=== PATIENT | female | born 1985 | race Two or more races ===

== ENCOUNTER 2023-05-03 08:05 | Emergency (ER) | payer MEDICAID ==
[~2023-05-03] VITALS: Ht 162.6 cm; Wt 165.0 kg
[2023-05-03 08:33] VITALS: BP 135/92; PULSE 79; RESP 20; O2SAT 99
[2023-05-03] MEDS ORDERED: ACETAMINOPHEN 500 MG TAB PO ONE (08:45)
[2023-05-03] MEDS ORDERED: IBUP-1456 PO (09:38)
[2023-05-03 09:41] VITALS: TEMP 97.7
== END 2023-05-03 09:47 | disposition home or self-care (01) ==
LOC: ER 08:05
DX: S52.122A Displaced fracture of head of left radius, initial encounter for closed fracture (principal); Z79.1 Long term (current) use of non-steroidal anti-inflammatories (NSAID); W01.0XXA Fall on same level from slipping, tripping and stumbling without subsequent striking against object, initial encounter; Y93.89 Activity, other specified; Y92.89 Other specified places as the place of occurrence of the external cause; Y99.8 Other external cause status
CPT/HCPCS: 29105; 73080; 73110

== ENCOUNTER 2024-06-30 03:26 | Inpatient (IN) | payer MEDICAID ==
[~2024-06-30] VITALS: Ht 162.6 cm; Wt 88.0 kg
[~2024-06-30 03:26] MED LIST: IBUP-1456 PO
[2024-06-30 04:10] VITALS: PULSE 71; RESP 17; O2SAT 100
[2024-06-30] MEDS: SODIUM CHLORIDE 0.9% 1,000 ML IV ONE ×4 (04:12→09:49)
[2024-06-30] MEDS: ACETAMINOPHEN IV 1000 MG/100ML (10MG/ML) IV ONE (04:50)
[2024-06-30 05:13] LABS: Basophils # (auto) 0 10 ^3/uL (0-0.2); Basophils % (auto) 0.3 % (0.0-2.0); Eosinophils # (auto) 0 10 ^3/uL (0-0.8); Eosinophils % (auto) 0.1 % (0.0-7.0); Hematocrit 40.6 % (36.0-46.0); Hemoglobin 13.1 g/dL (12.2-16.2); Lymphocytes # (auto) 1.2 10 ^3/uL (0.4-5.4); Lymphocytes % (auto) 8.9 % (10.0-50.0); Mean Corpuscular Hgb Conc. 32.3 g/dL (32.0-36.0); Mean Corpuscular Volume 102.1 fL (80.0-100.0); Monocytes # (auto) 0.7 10 ^3/uL (0-1.3); Monocytes % (auto) 5.4 % (0.0-12.0); Neutrophils # (auto) 11.7 10 ^3/uL (1.6-8.6); Neutrophils % (auto) 85.3 % (37.0-80.0); Platelet Count (auto) 211 10^3/uL (140-450); Red Blood Cells 3.97 10^6/uL (4.0-5.20); Red Cell Distribution Width 13.1 % (11.8-14.3); White Blood Cell 13.7 10^3/uL (4.4-10.8)
[2024-06-30 05:21] LABS: Alanine Aminotransferase 56 U/L (7-40); Alkaline Phosphatase 45 U/L (46-116); Anion Gap 12 (5-15); Aspartate Aminotransferase 138 U/L (13-40); BUN/Creatinine Ratio 16.9 (10.0-20.0); Bilirubin, Total 0.6 mg/dL (0.2-1.0); Blood Urea Nitrogen 12 mg/dL (9-23); Calcium 9.1 mg/dL (8.7-10.4); Carbon Dioxide 20 mmol/L (20-31); Chloride 111 mmol/L (98-107); Glucose 131 mg/dL (74-106); Lipase 29 U/L (12-53); Potassium 3.7 mmol/L (3.5-5.1); Sodium 143 mmol/L (136-145); Total Protein 6.3 g/dL (5.7-8.2)
--- NOTE | 2024-06-30 05:21 | DVH ---
EXAM: CT Abdomen and Pelvis Without Intravenous Contrast CLINICAL INDICATION: Abdominal pain, hypotension TECHNIQUE: Axial computed tomography images of the abdomen and pelvis without intravenous contrast. This CT exam was performed using one or more of the following dose reduction techniques: automated exposure control, adjustment of the mA and/or kV according to patient size, and/or use of iterative r econstruction technique. CONTRAST: COMPARISON: None FINDINGS: LUNG BASES: Unremarkable. No mass. No consolidation. MEDIASTINUM: Small esophageal hiatal hernia. ABDOMEN: LIVER: Fatty infiltration of the liver. GALLBLADDER AND BILE DUCTS: Unremarkable. No calcified stones. No ductal dilation. PANCREAS: Unremarkable. No ductal dilation. SPLEEN: Unremarkable. No splenomegaly. ADRENALS: Unremarkable. No mass. KIDNEYS AND URETERS: Unremarkable. No stones within either kidney. No hydronephrosis. STOMACH AND BOWEL: Unremarkable. No obstruction. No mucosal thickening. PELVIS: APPENDIX: Normal appendix. BLADDER: Unremarkable. No stones. REPRODUCTIVE: Unremarkable as visualized. ABDOMEN and PELVIS: INTRAPERITONEAL SPACE: Unremarkable. No free air. No significant fluid collection. BONES/JOINTS: No acute fracture. No dislocation. SOFT TISSUES: Umbilical hernia containing fat. VASCULATURE: Unremarkable. No abdominal aortic aneurysm. LYMPH NODES: Unremarkable. No enlarged lymph nodes. OTHER FINDINGS: . . IMPRESSION: 1. Normal appendix. 2. Small esophageal hiatal hernia. 3. Umbilical hernia containing fat. 4. No obstructive uropathy.
--- NOTE | 2024-06-30 05:51 | ED.PDOC ---
History of Present Illness HPI Comments [id number] presents with complaint of epigastric and RUQ abdominal, back, and neck pain, dizziness, and generalized weakness, today. Patient endorses on sudden and unprovoked onset of symptoms that awoke her from her sleep, this morning. She states on pain being 8/10 in severity. She reports no significant history but admits to poor fluid intake the day prior. She has no endorsed nausea, vomiting, diarrhea, constipation, or other associated symptoms or modifying factors at this time. Upon arrival to ED, patient was found with a blood pressure of 82/58, with no endorses history of hypotension in the past. Chief Complaint: Abdominal Pain Time Seen by MD: 04:10 Reviewed Notes: Nurses Notes, Medications, Allergies Allergies: Coded Allergies: NO KNOWN ALLERGIES (Unverified , 06/30/24) Home Meds Active Scripts Ibuprofen (Ibuprofen) 800 Mg Tab, 1 TAB PO TID, #30 TAB Prov:KADICHRISTIANE 05/03/23 Information Source: Patient Mode of Arrival: Ambulatory Severity: Moderate Review of Systems: REVIEW OF SYSTEMS: No fever, no chills, or fatigue HEENT: No sore throat, no earache, no congestion, no neck pain. Cardiac: No chest pain. No palpitations. Lungs: No shortness of breath, no cough. GI: Abdominal pain. No nausea, no vomiting, no diarrhea, no constipation, : No dysuria, frequency, or urgency. No hematuria. Musculoskeletal: Back pain. Neck pain. no joint swelling, no extremity edema. Skin: No rash, no itching. Neuro: Dizziness. Generalized weakness. No headache, no dizziness. Vital Signs Vital Signs Date Time Temp Pulse Resp B/P (MAP) Pulse Ox O2 Delivery O2 Flow Rate FiO2 06/30/24 05:11 63 18 100/63 (75) 99 06/30/24 04:13 98.9 06/30/24 04:10 Room Air* 0 21 Physical Exam General: Awake, alert and oriented. No acute distress. Skin: Skin in cool to touch, dry and intact. Appropriate color for ethnicity. HEENT: The head is normocephalic and atraumatic. Conjunctivae are clear without exudates or hemorrhage. Sclera is non-icteric. EOM are intact. No signs of nystagmus. Eyelids are normal in appearance without swelling or lesions. Oral mucosa is pink and moist Neck: The neck is supple with normal range of motion. No JVD. Cardiac: Heart rate and rhythm are normal. No murmurs, gallops, or rubs are auscultated. Respiratory: No signs of respiratory distress. Lung sounds are clear in all lobes bilaterally without rales, ronchi, or wheezes. Abdominal: Right upper quadrant epigastric tenderness. Otherwise, abdomen is soft, and without distention. Bowel sounds are present and normoactive in all four quadrants. Extremities: Upper and lower extremities are atraumatic in appearance without deformity or edema. Neurological: The patient is awake, alert and oriented to person, place, and time with normal speech. Speech is clear. There is no facial asymmetry. 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 Was a procedure done?: No Differential Dx Considerations may include: Differential diagnoses considered include: Abdominal aortic aneurysm, NV, esophageal rupture, intestinal obstruction, mesenteric ischemia, perforated viscus or solid organ rupture, CHF with hepatomegaly, pneumonia, abscess, appendicitis, biliary disease, diverticulitis, gastritis, gastroenteritis, hepatitis, hernia, inflammatory bowel disease, pancreatitis, peptic ulcer disease, urinary tract infection, ureteral colic, constipation, GERD, irritable syndrome, abdominal wall pain, nonspecific abdominal pain, herpes zoster. [ ]Also ruptured ectopic , ovarian torsion/cyst, tubo-ovarian abscess, PID, endometriosis, mittelschmerz. X-Ray, Labs, Meds, VS Vital Signs Date Time Temp Pulse Resp B/P (MAP) Pulse Ox O2 Delivery O2 Flow Rate FiO2 06/30/24 05:11 63 18 100/63 (75) 99 06/30/24 04:38 70 6 96/54 (68) 98 06/30/24 04:20 71 18 99/64 (76) 99 06/30/24 04:13 98.9 60 20 60/31 (41) 98 06/30/24 04:10 60 17 83/54 (64) 100 06/30/24 04:10 71 17 100 Room Air* 0 21 06/30/24 04:08 97.7 71 18 82/58 (66) 100 97.7 Lab Test 06/30/24 04:54 Range/Units White Blood Count 13.7 H 4.4-10.8 10^3/uL Red Blood Count 3.97 L 4.0-5.20 10^6/uL Hemoglobin 13.1 12.2-16.2 g/dL Hematocrit 40.6 36.0-46.0 % Mean Corpuscular Volume 102.1 H 80.0-100.0 fL Mean Corpuscular Hemoglobin 33.0 H 28.0-32.0 pg Mean Corpuscular Hemoglobin Concent 32.3 32.0-36.0 g/dL Red Cell Distribution Width 13.1 11.8-14.3 % Platelet Count 211 140-450 10^3/uL Mean Platelet Volume 8.3 6.9-10.8 fL Neutrophils (%) (Auto) 85.3 H 37.0-80.0 % Lymphocytes (%) (Auto) 8.9 L 10.0-50.0 % Monocytes (%) (Auto) 5.4 0.0-12.0 % Eosinophils (%) (Auto) 0.1 0.0-7.0 % Basophils (%) (Auto) 0.3 0.0-2.0 % Neutrophils # (Auto) 11.7 H 1.6-8.6 10 ^3/uL Lymphocytes # (Auto) 1.2 0.4-5.4 10 ^3/uL Monocytes # (Auto) 0.7 0-1.3 10 ^3/uL Eosinophils # (Auto) 0 0-0.8 10 ^3/uL Basophils # (Auto) 0 0-0.2 10 ^3/uL Nucleated Red Blood Cells 0.0 % Sodium Level 143 136-145 mmol/L Potassium Level 3.7 3.5-5.1 mmol/L Chloride Level 111 H 98-107 mmol/L Carbon Dioxide Level 20 20-31 mmol/L Anion Gap 12 5-15 Blood Urea Nitrogen 12 9-23 mg/dL Creatinine 0.71 0.550-1.02 mg/dL Glomerular Filtration Rate Calc 110 >90 mL/min BUN/Creatinine Ratio 16.9 10.0-20.0 Serum Glucose 131 H 74-106 mg/dL Lactic Acid Level 3.9 *H 0.4-2.0 mmol/L Calcium Level 9.1 8.7-10.4 mg/dL Total Bilirubin 0.6 0.2-1.0 mg/dL Aspartate Amino Transferase (AST) 138 H 13-40 U/L Alanine Aminotransferase (ALT) 56 H 7-40 U/L Alkaline Phosphatase 45 L 46-116 U/L Total Protein 6.3 5.7-8.2 g/dL Albumin 4.0 3.2-4.8 g/dL Lipase 29 12-53 U/L Current Medications Medications (Trade) Dose Ordered Sig/Adrian Route Start Time Stop Time Status Last Admin Sodium Chloride 1,000 ml @ 1,000 mls/hr Q1H ONCE IV 06/30/24 04:15 06/30/24 05:14 DC 06/30/24 04:12 Sodium Chloride 1,000 ml @ 1,000 mls/hr Q1H ONCE IV 06/30/24 04:15 06/30/24 05:14 DC 06/30/24 05:10 Acetaminophen (Ofirmev) 1,000 mg ONCE ONCE IV 06/30/24 04:45 06/30/24 04:46 DC 06/30/24 04:50 Piperacillin Sod/ Tazobactam Sod 100 ml @ 100 mls/hr ONCE ONCE IV 06/30/24 06:00 06/30/24 06:59 06/30/24 06:01 [place] [id number] Ph: [phone] DIAGNOSTIC IMAGING Diagnostic Imaging Report : [id number] Signed PATIENT: JOSEMANUEL ESPINOZA ACCT: [id number] UNIT: [id number] : 1985 LOC: ER ROOM / BED: / AGE / SEX: 39 / F ADM STATUS: REG ER SERVICE 6 ORDERING PHYSICIAN: SHAY BENSON MD PROCEDURE(s): ABPL - CT AB PEL WO CON-NO ORAL OR IV REASON: Abdominal pain, hypotension ORDER NUMBER(s): [id number], ACCESSION NUMBER(s): [id number] EXAM: CT Abdomen and Pelvis Without Intravenous Contrast CLINICAL INDICATION: Abdominal pain, hypotension TECHNIQUE: Axial computed tomography images of the abdomen and pelvis without intravenous contrast. This CT exam was performed using one or more of the following dose reduction techniques: automated exposure control, adjustment of the mA and/or kV according to patient size, and/or use of iterative reconstruction technique. CONTRAST: COMPARISON: None FINDINGS: LUNG BASES: Unremarkable. No mass. No consolidation. MEDIASTINUM: Small esophageal hiatal hernia. ABDOMEN: LIVER: Fatty infiltration of the liver. GALLBLADDER AND BILE DUCTS: Unremarkable. No calcified stones. No ductal dilation. PANCREAS: Unremarkable. No ductal dilation. SPLEEN: Unremarkable. No splenomegaly. ADRENALS: Unremarkable. No mass. KIDNEYS AND URETERS: Unremarkable. No stones within either kidney. No hydronephrosis. STOMACH AND BOWEL: Unremarkable. No obstruction. No mucosal thickening. PELVIS: APPENDIX: Normal appendix. BLADDER: Unremarkable. No stones. REPRODUCTIVE: Unremarkable as visualized. ABDOMEN and PELVIS: INTRAPERITONEAL SPACE: Unremarkable. No free air. No significant fluid collection. BONES/JOINTS: No acute fracture. No dislocation. SOFT TISSUES: Umbilical hernia containing fat. VASCULATURE: Unremarkable. No abdominal aortic aneurysm. LYMPH NODES: Unremarkable. No enlarged lymph nodes. OTHER FINDINGS: . . IMPRESSION: 1. Normal appendix. 2. Small esophageal hiatal hernia. 3. Umbilical hernia containing fat. 4. No obstructive uropathy. ATED BY: BEAU WILKINSON MD DICTATED DATE/TIME: 06/30/24518 SIGNED BY: BEAU WILKINSON MD SIGNED DATE/TIME: 06/30/24518 CC: Time of 1ST Reevaluation: 04:40 Reevaluation 1ST: Unchanged Reevaluation 2ND: Unchanged Patient Education/Counseling: Treatment, Need For Follow Up Family Education/Counseling: No Family Present Departure 1 Departure Time of Disposition: 06:20 Impression: Primary Impression: Abdominal pain Additional Impression: Elevated LFTs Disposition: 30 STILL A PATIENT Condition: Stable Comments 39 year old female presents with sudden onset severe abdominal pain, elevated LFT, leukocytosis, elevated lactic acid. Patient sent urgently for CT abdomen pelvis w/o contrast due to hypotension on arrival. Blood pressure improving with IVF. CT abdomen pelvic w/o contrast negative. US gallbladder pending. Sign out t o oncoming provider pending results and disposition. Critical Care Note Critical Care Time?: No Stability Stability form required: No Heart Score Heart Score: Heart Score Response (Comments) Value History N/A 0 EKG N/A 0 Age N/A 0 Risk Factors N/A 0 Troponin N/A 0 Total 0 I personally scribed for SHAY BENSON MD ([email or web address]) on 06/30/24 at 05:50. Electronically submitted by Seth Roca ([email or web address]). I personally scribed for SHAY BENSON MD ([email or web address]) on 06/30/24 at 06:05. Electronically submitted by Seth Roca ([email or web address]). SHAY BENSON MD Jun 30, 2024 05:50
[2024-06-30] MEDS: PIPERACILLIN-TAZO 4.5GM 100 ML IV ONE (06:01)
[2024-06-30 06:04] LABS: Lactic Acid w/Reflex 3.9 mmol/L (0.4-2.0)
[2024-06-30 07:34] LABS: INR 1.08 (0.9-1.15); Prothrombin Time 11.4 sec (9.3-11.8)
--- NOTE | 2024-06-30 08:13 | DVH ---
EXAM: US GALLBLADDER INDICATION: Rule out cholelithiasis/cholecystitis TECHNIQUE: Multiple real-time sonographic images were obtained of the right upper quadrant. COMPARISON: CT 06/30/2024 FINDINGS: The liver demonstrates increased echotexture without focal mass lesions. There is hepatope naya color doppler flow in the main portal vein. There is no intrahepatic biliary ductal dilatation. There are gallstones. The gallbladder wall measures 0.2 cm. The common bile duct measures 0.3 cm . There is a negative sonographic Bloom's sign. The right kidney measures 10.3 cm. The right kidney is normal in contour, size, and shape. The ech ogenicity is normal. There is no hydronephrosis. The pancreas is not well visualized due to overlying bowel gas. Visualized portions of the aorta and inferior vena cava are unremarkable. No evidence of ascites. IMPRESSION: 1. Multiple gallstones. No evidence of acute cholecystitis. 2. Hepatic steatosis.
[2024-06-30 08:15] VITALS: PULSE 76; RESP 15; O2SAT 100
--- NOTE | 2024-06-30 09:40 | ED.PDOC ---
Departure 1 Departure Time of Disposition: 06:20 Impression: Primary Impression: Abdominal pain Qualified Codes: R10.84 - Generalized abdominal pain Additional Impressions: Elevated LFTs Cholelithiasis Qualified Codes: K80.20 - Calculus of gallbladder without cholecystitis without obstruction Disposition: 09 ADMITTED INPATIENT Admit to: Med Surg Condition: Serious Critical Care Note Critical Care Time?: Yes Critical care comment: Intractable abdominal pain Authorized and Performed by: Belia Honeycutt MD Total critical care time: Approximately 34 minutes Due to a high probability of clinically significant, life threatening deterioration, the patient required my highest level of preparedness to intervene emergently and I personally spent this critical care time directly and personally managing the patient. This critical care time included obtaining a history; examining the patient; pulse oximetry; ordering and review of studies; arranging urgent treatment with development of a management plan; evaluation of patient's response to treatment; frequent reassessment; and, discussions with other providers. This critical care time was performed to assess and manage the high probability of imminent, life-threatening deterioration that could result in multi-organ failure. It was exclusive of separately billable procedures and treating other patients and teaching time. Please see my other sections and the rest of the note for further information on patient assessment and treatment. BELIA HONEYCUTT MD Jun 30, 2024 09:40
[2024-06-30] MEDS ORDERED: ONDANSETRON HCL 4 MG/2 ML VIAL IV PRN (10:15)
[2024-06-30] MEDS ORDERED: DOCUSATE SOD 100 MG CAP PO PRN (10:15)
--- NOTE | 2024-06-30 10:37 | DVHHP2 ---
History of Present Illness Reason for Visit: Abdominal pain History of Present Illness Annemarie Perez is a 39-year-old female with no significant past medical history who came in for abdominal pain. Patient states she was woken up about midnight due to the abdominal pain. The pain was in her right epigastric region going over to her right upper quadrant. She states on ER assessment, when they palpitated her RUQ the pain increased significantly. She states she last ate about 1999, and she had fried shrimp and fried veggie roll. On arrival to ER patient was found to be hypotensive, with elevated lactic acid level, and leukocytosis. Fluid bolus and antibiotics were given and blood pressure did improve. Past Surgical History: None Smoke: No ALCOHOL: none Drugs: None Lives: with Family Domestic Violence: Neg Review of Systems Constitutional: No: Fever, Chills, Sweats, Weakness, Malaise, Other Eyes: No: Pain, Vision change, Conjunctivae inflammation, Eyelid inflammation, Other, Redness ENT: No: Ear pain, Ear discharge, Nose pain, Nose discharge, Nose congestion, Mouth pain, Mouth swelling, Throat pain, Throat swelling, Other Respiratory: No: Cough, Dry, Shortness of breath, SOB with excertion, Wheezing, Hemoptysis, Pleuritic Pain, Sputum, Wheezing, Other Cardiovascular: No: Chest Pain, Palpitations, Orthopnea, Paroxysmal Noc. Dyspnea, Edema, Lt Headedness, Other Gastrointestinal: Nausea, Vomiting, Abdominal Pain; No: Diarrhea, Constipation, Melena, Hematochezia, Other Genitourinary: No Dysuria, No Frequency, No Incontinence, No Hematuria, No Retention, No Other Musculoskeletal: No: other, neck pain, shoulder pain, arm pain, back pain, hand pain, leg pain, foot pain Skin: No: Rash, Lesions, Jaundice, Bruising, Other Neurological: No: Weakness, Numbness, Incoordination, Change in speech, Confusion, Seizures, Other Allergies: Coded Allergies: NO KNOWN ALLERGIES (Unverified , 06/30/24) Medications Current Medications Medications Dose Ordered Sig/Adrian Route Start Time Stop Time Status Last Admin Dose Admin Acetaminophen/ Hydrocodone Bitart 1 tab Q4HP PRN PO 06/30/24 10:15 UNV Ondansetron HCl 4 mg Q4HP PRN IV 06/30/24 10:15 UNV Docusate Sodium 100 mg BIDPRN PRN PO 06/30/24 10:15 UNV Acetaminophen 650 mg Q6HP PRN PO 06/30/24 10:15 UNV Exam Vital Signs Vital Signs Date Time Temp Pulse Resp B/P (MAP) Pulse Ox O2 Delivery O2 Flow Rate FiO2 06/30/24 08:15 76 15 100 Room Air* 0 21 06/30/24 08:00 97.9 96/69 (78) 97.9 General Appearance: Alert, Oriented X3, Cooperative, moderate distress HEENT: Atraumatic, PERRLA Respiratory: Clear to auscultation, Normal air movement Cardiovascular: Regular rate, Normal S1, Normal S2 Abdominal: Soft, Other (Abdominal pain, nausea) Extremities: No clubbing, No cyanosis, No edema, Normal pulses, No tenderness /swelling Skin: No rashes, No breakdown, No significant lesion Neuro: Normal gait, Normal speech, Strength at 5/5 X4 ext, Normal tone Psych/Mental Status: Mental status NL, Mood NL Labs/Xrays Labs Test 06/30/24 09:00 06/30/24 07:05 06/30/24 04:54 Range/Units Lactic Acid Level 1.9 0.4-2.0 mmol/L Prothrombin Time 11.4 9.3-11.8 sec Prothrombin Time INR 1.08 0.9-1.15 White Blood Count 13.7 H 4.4-10.8 10^3/uL Red Blood Count 3.97 L 4.0-5.20 10^6/uL Hemoglobin 13.1 12.2-16.2 g/dL Hematocrit 40.6 36.0-46.0 % Mean Corpuscular Volume 102.1 H 80.0-100.0 fL Mean Corpuscular Hemoglobin 33.0 H 28.0-32.0 pg Mean Corpuscular Hemoglobin Concent 32.3 32.0-36.0 g/dL Red Cell Distribution Width 13.1 11.8-14.3 % Platelet Count 211 140-450 10^3/uL Mean Platelet Volume 8.3 6.9-10.8 fL Neutrophils (%) (Auto) 85.3 H 37.0-80.0 % Lymphocytes (%) (Auto) 8.9 L 10.0-50.0 % Monocytes (%) (Auto) 5.4 0.0-12.0 % Eosinophils (%) (Auto) 0.1 0.0-7.0 % Basophils (%) (Auto) 0.3 0.0-2.0 % Neutrophils # (Auto) 11.7 H 1.6-8.6 10 ^3/uL Lymphocytes # (Auto) 1.2 0.4-5.4 10 ^3/uL Monocytes # (Auto) 0.7 0-1.3 10 ^3/uL Eosinophils # (Auto) 0 0-0.8 10 ^3/uL Basophils # (Auto) 0 0-0.2 10 ^3/uL Nucleated Red Blood Cells 0.0 % Sodium Level 143 136-145 mmol/L Potassium Level 3.7 3.5-5.1 mmol/L Chloride Level 111 H 98-107 mmol/L Carbon Dioxide Level 20 20-31 mmol/L Anion Gap 12 5-15 Blood Urea Nitrogen 12 9-23 mg/dL Creatinine 0.71 0.550-1.02 mg/dL Glomerular Filtration Rate Calc 110 >90 mL/min BUN/Creatinine Ratio 16.9 10.0-20.0 Serum Glucose 131 H 74-106 mg/dL Calcium Level 9.1 8.7-10.4 mg/dL Total Bilirubin 0.6 0.2-1.0 mg/dL Aspartate Amino Transferase (AST) 138 H 13-40 U/L Alanine Aminotransferase (ALT) 56 H 7-40 U/L Alkaline Phosphatase 45 L 46-116 U/L Total Protein 6.3 5.7-8.2 g/dL Albumin 4.0 3.2-4.8 g/dL Lipase 29 12-53 U/L EXAM: CT Abdomen and Pelvis Without Intravenous Contrast FINDINGS: LUNG BASES: Unremarkable. No mass. No consolidation. MEDIASTINUM: Small esophageal hiatal hernia. ABDOMEN: LIVER: Fatty infiltration of the liver. GALLBLADDER AND BILE DUCTS: Unremarkable. No calcified stones. No ductal dilation. PANCREAS: Unremarkable. No ductal dilation. SPLEEN: Unremarkable. No splenomegaly. ADRENALS: Unremarkable. No mass. KIDNEYS AND URETERS: Unremarkable. No stones within either kidney. No hydronephrosis. STOMACH AND BOWEL: Unremarkable. No obstruction. No mucosal thickening. PELVIS: APPENDIX: Normal appendix. BLADDER: Unremarkable. No stones. REPRODUCTIVE: Unremarkable as visualized. ABDOMEN and PELVIS: INTRAPERITONEAL SPACE: Unremarkable. No free air. No significant fluid collection. BONES/JOINTS: No acute fracture. No dislocation. SOFT TISSUES: Umbilical hernia containing fat. VASCULATURE: Unremarkable. No abdominal aortic aneurysm. LYMPH NODES: Unremarkable. No enlarged lymph nodes. OTHER FINDINGS: . . IMPRESSION: 1. Normal appendix. 2. Small esophageal hiatal hernia. 3. Umbilical hernia containing fat. 4. No obstructive uropathy. EXAM: US GALLBLADDER FINDINGS: The liver demonstrates increased echotexture without focal mass lesions. There is hepatopedal color doppler flow in the main portal vein. There is no intrahepatic biliary ductal dilatation. There are gallstones. The gallbladder wall measures 0.2 cm. The common bile duct measures 0.3 cm. There is a negative sonographic Bloom's sign. The right kidney measures 10.3 cm. The right kidney is normal in contour, size, and shape. The echogenicity is normal. There is no hydronephrosis. The pancreas is not well visualized due to overlying bowel gas. Visualized portions of the aorta and inferior vena cava are unremarkable. No evidence of ascites. IMPRESSION: 1. Multiple gallstones. No evidence of acute cholecystitis. 2. Hepatic steatosis. Assessment/Plan Assessment/Plan Assessment: Cholelithiasis, Sepsis, Hepatic steatosis, Transaminitis, Plan: Admit to Med-Surg, Surgical consult, HIDA scan, NPO, IV antibiotics, IV hydration, Plan discussed with: Patient My Orders Orders - YOLIE DELAROSA Procedure Category Date Status Time Admit ADMIT 06/30/24 Transmitted 10:09 Code Status CODE 06/30/24 Transmitted 10:09 Hydrocodone-Acet PHA 06/30/24 Logged 5/325mg Tab ([facility] [place] 10:15 Ondansetron Hcl PHA 06/30/24 Logged (Zofran) 10:15 Docusate Sodium PHA 06/30/24 Logged Capsule (Colace 10:15 Complete Blood Count LAB 07/01/24 Verified 04:00 Comprehensive LAB 07/01/24 Verified Metabolic Panel 04:00 Npo (Nothing By DIET 06/30/24 Transmitted Mouth) Diet Lunch Condition: Critical BRIAN 06/30/24 In Process 10:09 Acetaminophen Tablet PHA 06/30/24 Logged (Tylenol Tablet) 10:15 Nm Hida Scan NM 06/30/24 Logged 10:09 * Surgical Consult CONS 06/30/24 Transmitted Test, Urine LAB 06/30/24 Logged 10:09 Date of Service: Jun 30, 2024 Billing Provider: YOLIE DELAROSA Common Visit Codes: [id number] INP/OBS CARE (MOD) YOLIE DELAROSA Jun 30, 2024 10:37
--- NOTE | 2024-06-30 11:09 | DVHINCON2 ---
Date of service: Jun 30, 2024 Allergies: Coded Allergies: NO KNOWN ALLERGIES (Unverified , 06/30/24) Home Meds Active Scripts Ibuprofen (Ibuprofen) 800 Mg Tab, 1 TAB PO TID, #30 TAB Prov:CHRISTIANE WALLIS 05/03/23 Current Medications Current Medications Medications (Trade) Dose Ordered Sig/Adrian Route PRN Reason Start Time Stop Time Status Last Admin Acetaminophen/ Hydrocodone Bitart (Mobile 5/325MG Tab) 1 tab Q4HP PRN PO MODERATE PAIN (4-6 PAIN SCALE) 06/30/24 10:15 Ondansetron HCl (Zofran) 4 mg Q4HP PRN IV NAUSEA / VOMITING 06/30/24 10:15 Docusate Sodium (Colace Capsule) 100 mg BIDPRN PRN PO FOR CONSTIPATION 06/30/24 10:15 Acetaminophen (Tylenol Tablet) 650 mg Q6HP PRN PO PAIN SCALE 1-3 OR TEMP>100.4 06/30/24 10:15 Ceftriaxone Sodium 50 ml @ 100 mls/hr DAILY@09 IV 07/01/24 09:00 Metronidazole 100 ml @ 100 mls/hr Q8HR IV 06/30/24 14:00 Vital Signs Vital Signs Date Time Temp Pulse Resp B/P (MAP) Pulse Ox O2 Delivery O2 Flow Rate FiO2 06/30/24 08:15 76 15 100 Room Air* 0 21 06/30/24 08:00 97.9 96/69 (78) 97.9 Labs/Diagnostic Data Labs Test 06/30/24 10:37 06/30/24 09:00 06/30/24 07:05 06/30/24 04:54 Range/Units Urine Test Negative Negative Lactic Acid Level 1.9 0.4-2.0 mmol/L Prothrombin Time 11.4 9.3-11.8 sec Prothrombin Time INR 1.08 0.9-1.15 White Blood Count 13.7 H 4.4-10.8 10^3/uL Red Blood Count 3.97 L 4.0-5.20 10^6/uL Hemoglobin 13.1 12.2-16.2 g/dL Hematocrit 40.6 36.0-46.0 % Mean Corpuscular Volume 102.1 H 80.0-100.0 fL Mean Corpuscular Hemoglobin 33.0 H 28.0-32.0 pg Mean Corpuscular Hemoglobin Concent 32.3 32.0-36.0 g/dL Red Cell Distribution Width 13.1 11.8-14.3 % Platelet Count 211 140-450 10^3/uL Mean Platelet Volume 8.3 6.9-10.8 fL Neutrophils (%) (Auto) 85.3 H 37.0-80.0 % Lymphocytes (%) (Auto) 8.9 L 10.0-50.0 % Monocytes (%) (Auto) 5.4 0.0-12.0 % Eosinophils (%) (Auto) 0.1 0.0-7.0 % Basophils (%) (Auto) 0.3 0.0-2.0 % Neutrophils # (Auto) 11.7 H 1.6-8.6 10 ^3/uL Lymphocytes # (Auto) 1.2 0.4-5.4 10 ^3/uL Monocytes # (Auto) 0.7 0-1.3 10 ^3/uL Eosinophils # (Auto) 0 0-0.8 10 ^3/uL Basophils # (Auto) 0 0-0.2 10 ^3/uL Nucleated Red Blood Cells 0.0 % Sodium Level 143 136-145 mmol/L Potassium Level 3.7 3.5-5.1 mmol/L Chloride Level 111 H 98-107 mmol/L Carbon Dioxide Level 20 20-31 mmol/L Anion Gap 12 5-15 Blood Urea Nitrogen 12 9-23 mg/dL Creatinine 0.71 0.550-1.02 mg/dL Glomerular Filtration Rate Calc 110 >90 mL/min BUN/Creatinine Ratio 16.9 10.0-20.0 Serum Glucose 131 H 74-106 mg/dL Calcium Level 9.1 8.7-10.4 mg/dL Total Bilirubin 0.6 0.2-1.0 mg/dL Aspartate Amino Transferase (AST) 138 H 13-40 U/L Alanine Aminotransferase (ALT) 56 H 7-40 U/L Alkaline Phosphatase 45 L 46-116 U/L Total Protein 6.3 5.7-8.2 g/dL Albumin 4.0 3.2-4.8 g/dL Lipase 29 12-53 U/L Assessment 39 y/o obese female with no prior surgical or significant medical history, non smoker, non drinker, with gallstones and sepsis on admission, laparoscopic vs open cholecystectromy, risks and complications explained in detail, full consult dictated Plan discussed with: Patient LARISSA SORIANO MD Jun 30, 2024 11:09
[2024-06-30 11:38] LABS: Urine Bacteria FEW /hpf (None Seen); Urine Blood Negative /uL (Negative); Urine Clarity Turbid (Clear); Urine Color Yellow (Yellow); Urine Mucus FEW (None Seen); Urine Protein, UAD 1+ (Negative); Urine Specific Gravity 1.044 (1.001-1.035); Urine Squamous Epithelial Cell MOD /hpf (<5); Urine Urobilinogen Normal (Negative); Urine WBC 6 /HPF (0-5)
[2024-06-30] MEDS: cefTRIAXone 1GM/50ML D5W 50 ML IV ONE (12:34)
--- NOTE | 2024-06-30 12:49 | DVH ---
Procedure: NM NM HIDA SCAN Exam Date: 06/30/2024 11:22 AM Clinical History: Cholelithiasis Comparison Study: 06/30/24 Nuclear Medicine Hepatobiliary Scan. Technique: Following the intravenous administration of 3.5 mCi of technetium 99m labeled Choletec multiple plana r abdominal planar images were obtained in anterior projection in 1 minute intervals for45 minutes . Right lateral images were obtained at 45 minutes after injection. Findings: The liver appears grossly normal in size. There is no abnormal persistence of the cardiac or blood po ol activity. There is prompt visualization of the gallbladder and excretion of activity into the smal l bowel. Impression: Unremarkable hepatobiliary study without evidence of acute cholecystitis.
[2024-06-30] MEDS: metroNIDAZOLE 500MG/100ML 100 ML IV SCH (14:13)
[2024-06-30 15:33] VITALS: PULSE 78; RESP 16; O2SAT 97
[2024-06-30 17:48] VITALS: BP 109/68; PULSE 73; RESP 18; TEMP 98.7; O2SAT 97
[2024-06-30 21:00] VITALS: BP 130/79; PULSE 69; RESP 20; TEMP 98.8; O2SAT 98
[2024-06-30] MEDS: KETOROLAC TROMETH 30 MG/ML 1ML VIAL IV ONE (23:00)
[2024-07-01] VITALS (11 sets, daily range): BP systolic 99–134; BP diastolic 60–80; PULSE 63–86; RESP 16–18; TEMP 97.9–98.8; O2SAT 0–99
[2024-07-01] MEDS ORDERED: fentaNYL CITRATE 100 MCG/2 ML VL ONE (06:03)
[2024-07-01] MEDS ORDERED: PROPOFOL 10 MG/ML 20 ML IV ONE (06:03)
[2024-07-01] MEDS ORDERED: DexAMETHasone SOD PHOS 10MG/1ML VIAL INJ ONE (06:29)
[2024-07-01] MEDS ORDERED: ONDANSETRON HCL 4 MG/2 ML VIAL ONE (06:29)
[2024-07-01] MEDS ORDERED: ROCURONIUM 10MG/ML 10ML VIAL IV ONE (06:30)
[2024-07-01] MEDS ORDERED: MEPERIDINE HCL (50 MG/ML) 1 ML VIAL ONE (06:33)
[2024-07-01 06:38] LABS: Basophils # (auto) 0 10 ^3/uL (0-0.2); Basophils % (auto) 0.7 % (0.0-2.0); Eosinophils # (auto) 0.1 10 ^3/uL (0-0.8); Eosinophils % (auto) 1.3 % (0.0-7.0); Hematocrit 34.9 % (36.0-46.0); Lymphocytes # (auto) 1.5 10 ^3/uL (0.4-5.4); Lymphocytes % (auto) 37.2 % (10.0-50.0); Mean Corpuscular Hemoglobin 32.9 pg (28.0-32.0); Mean Corpuscular Hgb Conc. 34.2 g/dL (32.0-36.0); Mean Corpuscular Volume 96.1 fL (80.0-100.0); Monocytes # (auto) 0.2 10 ^3/uL (0-1.3); Monocytes % (auto) 5.6 % (0.0-12.0); Neutrophils # (auto) 2.2 10 ^3/uL (1.6-8.6); Neutrophils % (auto) 55.2 % (37.0-80.0); Platelet Count (auto) 226 10^3/uL (140-450); Red Blood Cells 3.63 10^6/uL (4.0-5.20); White Blood Cell 3.9 10^3/uL (4.4-10.8)
[2024-07-01] MEDS ORDERED: SUGAMMADEX 200mg/2ml Vial (100MG/ML) IV ONE (07:09)
[2024-07-01 07:12] LABS: Alanine Aminotransferase 303 U/L (7-40); Albumin 3.8 g/dL (3.2-4.8); Alkaline Phosphatase 48 U/L (46-116); Anion Gap 9 (5-15); Aspartate Aminotransferase 165 U/L (13-40); BUN/Creatinine Ratio 17.9 (10.0-20.0); Blood Urea Nitrogen 10 mg/dL (9-23); Calcium 8.6 mg/dL (8.7-10.4); Carbon Dioxide 23 mmol/L (20-31); Chloride 112 mmol/L (98-107); Glucose 89 mg/dL (74-106); Potassium 3.4 mmol/L (3.5-5.1); Sodium 144 mmol/L (136-145); Total Protein 5.9 g/dL (5.7-8.2)
[2024-07-01 07:13] LABS: Bilirubin, Total 0.8 mg/dL (0.2-1.0)
[2024-07-01 07:31] LABS: INR 0.98 (0.9-1.15); Partial Thromboplastin Time < 20.0 SEC (24.5-34.5); Prothrombin Time 10.4 sec (9.3-11.8)
--- NOTE | 2024-07-01 08:21 | DVHOP ---
DATE OF SURGERY: 07/01/2024 PREOPERATIVE DIAGNOSES: Cholelithiasis, cholecystitis. POSTOPERATIVE DIAGNOSES: Cholelithiasis, cholecystitis. SURGEON: Jeison Jamison MD [employer] CREWMEMBER: Zachary Rubio. ANESTHESIA: General endotracheal. ANESTHESIOLOGIST: Dr. Rhoades. PROCEDURE: Laparoscopy, laparoscopic cholecystectomy. DESCRIPTION OF PROCEDURE: Under general endotracheal anesthesia, with the patient's skin prepped and draped, a supraumbilical incision was made and Veress needle inserted into the peritoneal cavity by the hanging drop technique in order to establish pneumoperitoneum to 15 mmHg pressure by insufflation with carbon dioxide. With the abdomen fully distended, the needle was removed and replaced with a 5 mm trocar port through which a 0-degree viewing laparoscope was inserted and under direct vision, additional 5 and 10 mm ports inserted through the right anterior axillary line at the level of the umbilicus and the subxiphoid skin in the midline respectively. Instrumentation was introduced. Laparoscopy revealed no obvious unexpected pathology on the serosal surfaces visualized. Visualization was hampered by the patient's obesity. There was a redundant left lobe of the liver, which made the procedure somewhat difficult due to retraction and visualization. The gallbladder was found to be distended. The gallbladder was placed on tension. Cystic artery and cystic duct were identified, circumferentially dissected, traced into the hepatocystic triangle so as to minimize the potential for inadvertent injury to the common bile duct. The cystic duct and cystic artery were then circumferentially dissected and skeletonized and the divided between metallic clips applied to these structures away from the common bile duct, again protecting the common bile duct. The cystic duct was short and was traced high up to its confluence with the gallbladder as high as possible. Subsequently, the gallbladder, which was partially intrahepatic, was resected from its liver bed and the resection to the intrahepatic portion of the gallbladder resulted in some blood loss and a small amount of hemostatic SNoW was then applied to the edge of the right lobe of the liver. The subhepatic space was irrigated, the irrigant was aspirated. Hemostasis was meticulously inspected and found to be complete. At the termination of the procedure, there was no evidence of bleeding from either the liver bed or from the port sites. Instrumentation was withdrawn. Pneumoperitoneum was evacuated. Fascial defect closed using 0 Vicryl. Wounds approximated using Monocryl sutures, Dermabond glue and Steri-Strips. The patient remained stable throughout the procedure, left the operating room following an accurate needle and sponge count. Her was thoroughly informed by phone. MD ADELA Valencia/MARTHA TID: [id number] RECEIPT: [id number]
[2024-07-01] MEDS: BUPIVACAINE 0.5% P/F INJ 10 ML VIAL ONE (08:23)
[2024-07-01] MEDS: LIDOCAINE W/ EPINEPHRINE 1% 20ML VIAL ONE (08:24)
[2024-07-01] MEDS ORDERED: MEPERIDINE HCL (25 MG/ML) 1ML VIAL IV PRN (08:30)
[2024-07-01] MEDS: ONDANSETRON HCL 4 MG/2 ML VIAL IV ONE (08:45)
[2024-07-01] MEDS: HYDROmorphone HCL 2 MG/ML VL/or syr IV PRN ×2 (08:47→14:56)
[2024-07-01] MEDS: cefTRIAXone 1GM/50ML D5W 50 ML IV SCH (08:50)
[2024-07-01] MEDS: HYDROcodone-ACET 5/325MG TAB PO PRN (10:20)
--- NOTE | 2024-07-01 17:00 | DVHPNRES ---
Progress Note Date Seen: Jul 01, 2024 Resident Creating Document: JHEricJDAJA NavaKELVIN RESIDENT Medical Necessity Reason Pt with a Central, PICC or Fol: No Subjective Review of Systems Patient is a 39-year-old female with no significant past medical history who came in for abdominal pain. Patient states she was woken up about midnight due to the abdominal pain. The pain was in her right epigastric region going over to her right upper quadrant. She states on ER assessment, when they palpitated her RUQ the pain increased significantly. She states she last ate about 1999, and she had fried shrimp and fried veggie roll. On arrival to ER patient was found to be hypotensive, with elevated lactic acid level, and leukocytosis. Fluid bolus and antibiotics were given and blood pressure did improve. Past medical history: none Past surgical history: none Social history: Denies smoking, alcohol, drug use Medications: none Review of systems Patient seen and examined at the bedside status post laparoscopic cholecystectomy She reports minimal right upper quadrant pain after the surgery. Denies passing flatus or stool post surgery Objective vital signs Vital Sign Date Time Temp Pulse Resp B/P (MAP) Pulse Ox O2 Delivery O2 Flow Rate FiO2 07/01/24 14:56 80 18 110/67 07/01/24 12:41 98.5 98 98.5 07/01/24 09:19 Room Air 0 95 Total Intake and Output 06/30/24 06/30/24 07/01/24 15:00 23:00 07:00 Intake Total 1050 ml 100 ml 100 ml Balance 1050 ml 100 ml 100 ml medications Current Medications Medications Dose Ordered Sig/Adrian Route Start Time Stop Time Status Last Admin Dose Admin Acetaminophen/ Hydrocodone Bitart 1 tab Q4HP PRN PO 06/30/24 10:15 07/01/24 10:20 1 TAB Ondansetron HCl 4 mg Q4HP PRN IV 06/30/24 10:15 Docusate Sodium 100 mg BIDPRN PRN PO 06/30/24 10:15 Acetaminophen 650 mg Q6HP PRN PO 06/30/24 10:15 Ceftriaxone Sodium 50 ml @ 100 mls/hr DAILY@09 IV 07/01/24 09:00 07/01/24 10:40 100 MLS/HR Metronidazole 100 ml @ 100 mls/hr Q8HR IV 06/30/24 14:00 07/01/24 14:41 100 MLS/HR Hydromorphone HCl 1 mg Q3HPRN PRN IV 07/01/24 08:15 07/01/24 14:56 1 MG Examination Constitutional: Patient was alert and oriented to time, place and person and does not appear to be in acute distress Gen - no pallor, no icterus, no cyanosis, no clubbing, no LAD, no edema . Skin - Patients skin is warm and dry. HEENT - normocephalic, atraumatic, moist mucous membranes. Neck - full ROM, no LAD Pulmonary - B/L vesicular breath sounds. no crackles , no wheezing, no stridor. cardiovascular - normal S1,S2 heard. no murmurs heard. GI - soft abdomen with minimal tenderness to palpation in the right upper quadrant. Bowel sounds diminished Neurological - Bilateral upper extremity strength 5/5, bilateral lower extremity strength 5/5, no facial droop, normal speech, no tremor, no sensory deficiets. laboratory and microbiology Laboratory Tests 07/01/24 06:11 Test 07/01/24 06:11 Range/Units Serum Glucose 89 74-106 mg/dL Microbiology Date/Time Source Procedure Growth Status 06/30/24 09:00 Blood Blood Culture - Preliminary NO GROWTH AFTER 24 HOURS OF INCUBATION. Resulted Problem List/Assessment/Plan Problem List/Assessment/Plan Assessment Acute intractable abdominal pain Cholelithiasis Sepsis likely due to cholecystitis Lactic acidosis Transaminitis Hepatic steatosis Gallbladder ultrasound showed multiple gallstones Plan Patient underwent laparoscopic cholecystectomy. On IV antibiotics with ceftriaxone and metronidazole IV fluids Started on clear liquid diet Pain control with Dilaudid p.r.n. Goals of care discussed with the patient for over 20 minutes. Full code Plan discussed Plan discussed with: Patient Date of Service: Jul 01, 2024 Billing Provider: MARINA VICK MD Common Visit Codes: [id number] INP/OBS CARE(HIGH) JOHNSON JERNIGAN RESIDENT Jul 01, 2024 17:00 MARINA VICK MD Jul 06, 2024 15:37
[2024-07-01] MEDS: POTASSIUM EFFERVESENT TAB 25 MEQ PO ONE (18:10)
[2024-07-02 01:00] VITALS: BP 108/71; PULSE 87; RESP 18; TEMP 98.9; O2SAT 93
[2024-07-02] MEDS: ACETAMINOPHEN 325 MG TAB PO PRN (03:30)
[2024-07-02 05:00] VITALS: BP 111/68; PULSE 90; RESP 17; TEMP 97.4; O2SAT 94
[2024-07-02 07:11] LABS: Basophils # (auto) 0 10 ^3/uL (0-0.2); Basophils % (auto) 0.2 % (0.0-2.0); Eosinophils # (auto) 0 10 ^3/uL (0-0.8); Hematocrit 30.9 % (36.0-46.0); Hemoglobin 10.5 g/dL (12.2-16.2); Lymphocytes # (auto) 1.5 10 ^3/uL (0.4-5.4); Mean Corpuscular Hemoglobin 32.9 pg (28.0-32.0); Mean Corpuscular Hgb Conc. 34.2 g/dL (32.0-36.0); Mean Corpuscular Volume 96.4 fL (80.0-100.0); Monocytes # (auto) 0.6 10 ^3/uL (0-1.3); Monocytes % (auto) 5.5 % (0.0-12.0); Neutrophils # (auto) 9.3 10 ^3/uL (1.6-8.6); Neutrophils % (auto) 81.3 % (37.0-80.0); Nucleated Red Blood Cells % 0.1 %; Platelet Count (auto) 220 10^3/uL (140-450); Red Cell Distribution Width 12.6 % (11.8-14.3); White Blood Cell 11.5 10^3/uL (4.4-10.8)
[2024-07-02 07:37] LABS: Albumin 3.7 g/dL (3.2-4.8); Anion Gap 9 (5-15); BUN/Creatinine Ratio 8.9 (10.0-20.0); Bilirubin, Total 0.5 mg/dL (0.2-1.0); Carbon Dioxide 24 mmol/L (20-31); Chloride 106 mmol/L (98-107); Potassium 3.7 mmol/L (3.5-5.1); Sodium 139 mmol/L (136-145); Total Protein 5.7 g/dL (5.7-8.2)
[2024-07-02 07:38] LABS: Alanine Aminotransferase 215 U/L (7-40); Alkaline Phosphatase 44 U/L (46-116); Aspartate Aminotransferase 74 U/L (13-40); Blood Urea Nitrogen 5 mg/dL (9-23); Glucose 109 mg/dL (74-106)
[2024-07-02 09:00] VITALS: BP 125/80; PULSE 84; RESP 16; TEMP 98.3; O2SAT 97
--- NOTE | 2024-07-02 09:03 | DVHPN2 ---
Progress Note Date Seen: Jul 02, 2024 Medical Necessity Reason Pt with a Central, PICC or Fol: No Objective vital signs Vital Sign Date Time Temp Pulse Resp B/P (MAP) Pulse Ox O2 Delivery O2 Flow Rate FiO2 07/02/24 05:00 97.4 90 17 111/68 (82) 94 97.4 07/01/24 20:00 Room Air* 0 21 Total Intake and Output 07/01/24 07/01/24 07/02/24 15:00 23:00 07:00 Intake Total 50 ml 1250 ml 540 ml Balance 50 ml 1250 ml 540 ml medications Current Medications Medications Dose Ordered Sig/Adrian Route Start Time Stop Time Status Last Admin Dose Admin Acetaminophen/ Hydrocodone Bitart 1 tab Q4HP PRN PO 06/30/24 10:15 07/01/24 10:20 1 TAB Ondansetron HCl 4 mg Q4HP PRN IV 06/30/24 10:15 Docusate Sodium 100 mg BIDPRN PRN PO 06/30/24 10:15 Acetaminophen 650 mg Q6HP PRN PO 06/30/24 10:15 07/02/24 03:30 650 MG Ceftriaxone Sodium 50 ml @ 100 mls/hr DAILY@09 IV 07/01/24 09:00 07/01/24 10:40 100 MLS/HR Metronidazole 100 ml @ 100 mls/hr Q8HR IV 06/30/24 14:00 07/02/24 04:55 100 MLS/HR Hydromorphone HCl 1 mg Q3HPRN PRN IV 07/01/24 08:15 07/01/24 14:56 1 MG laboratory and microbiology Laboratory Tests 07/02/24 06:11 Test 07/02/24 06:11 Range/Units Serum Glucose 109 H 74-106 mg/dL Problem List/Assessment/Plan Problem List/Assessment/Plan 07/02/24 feels well, normal bowel activity, ambulated, abdomen appropriately tender, labs OK, advance diet, cleared for discharge,( instructions given), wounds clean and well approximated, I will see pt in outpatient f/u in two weeks, may shower after 72 hours. Plan discussed with: Patient LARISSA SORIANO MD Jul 02, 2024 09:03
[2024-07-02] MEDS: SUCCINYLCHOLINE CHLORIDE 20 MG/ML 10ML VIAL IV ONE (09:18)
[2024-07-02] MEDS: HYDROmorphone HCL 2 MG/ML VL/or syr ONE (09:18)
[2024-07-02] MEDS: ONDANSETRON HCL 4 MG/2 ML VIAL ONE (09:18)
[2024-07-02 13:00] VITALS: BP 123/76; PULSE 78; RESP 16; TEMP 98.3; O2SAT 97
[2024-07-02 13:43] VITALS: TEMP 36.8
--- NOTE | 2024-07-02 19:58 | DVHDSRES ---
Discharge Summary Date of Admission Resident Creating Document: JOHNSON JERNIGAN RESIDENT Jun 30, 2024 at 10:09 Date of Discharge: Jul 02, 2024 Admitting Diagnosis Cholelithiasis Sepsis Hepatic steatosis Transaminitis Wounds: Supra umbilical wound of the laparoscopic surgery covered in sterile dressing Labs/Diagnostic Data: Laboratory Results Test 07/02/24 06:11 07/01/24 06:11 06/30/24 10:37 06/30/24 09:00 White Blood Count 11.5 10^3/uL (4.4-10.8) Red Blood Count 3.20 10^6/uL (4.0-5.20) Hemoglobin 10.5 g/dL (12.2-16.2) Hematocrit 30.9 % (36.0-46.0) Mean Corpuscular Volume 96.4 fL (80.0-100.0) Mean Corpuscular Hemoglobin 32.9 pg (28.0-32.0) Mean Corpuscular Hemoglobin Concent 34.2 g/dL (32.0-36.0) Red Cell Distribution Width 12.6 % (11.8-14.3) Platelet Count 220 10^3/uL (140-450) Mean Platelet Volume 8.6 fL (6.9-10.8) Neutrophils (%) (Auto) 81.3 % (37.0-80.0) Lymphocytes (%) (Auto) 13.0 % (10.0-50.0) Monocytes (%) (Auto) 5.5 % (0.0-12.0) Eosinophils (%) (Auto) 0.0 % (0.0-7.0) Basophils (%) (Auto) 0.2 % (0.0-2.0) Neutrophils # (Auto) 9.3 10 ^3/uL (1.6-8.6) Lymphocytes # (Auto) 1.5 10 ^3/uL (0.4-5.4) Monocytes # (Auto) 0.6 10 ^3/uL (0-1.3) Eosinophils # (Auto) 0 10 ^3/uL (0-0.8) Basophils # (Auto) 0 10 ^3/uL (0-0.2) Nucleated Red Blood Cells 0.1 % Sodium Level 139 mmol/L (136-145) Potassium Level 3.7 mmol/L (3.5-5.1) Chloride Level 106 mmol/L (98-107) Carbon Dioxide Level 24 mmol/L (20-31) Anion Gap 9 (5-15) Blood Urea Nitrogen 5 mg/dL (9-23) Creatinine 0.56 mg/dL (0.550-1.02) Glomerular Filtration Rate Calc 118 mL/min (>90) BUN/Creatinine Ratio 8.9 (10.0-20.0) Serum Glucose 109 mg/dL (74-106) Calcium Level 9.0 mg/dL (8.7-10.4) Total Bilirubin 0.5 mg/dL (0.2-1.0) Aspartate Amino Transferase (AST) 74 U/L (13-40) Alanine Aminotransferase (ALT) 215 U/L (7-40) Alkaline Phosphatase 44 U/L (46-116) Total Protein 5.7 g/dL (5.7-8.2) Albumin 3.7 g/dL (3.2-4.8) Prothrombin Time 10.4 sec (9.3-11.8) Prothrombin Time INR 0.98 (0.9-1.15) Activated Partial Thromboplast Time < 20.0 SEC (24.5-34.5) Urine Color Yellow (Yellow) Urine Clarity Turbid (Clear) Urine pH 6.0 (5.0-9.0) Urine Specific [place] 1.044 (1.001-1.035) Urine Protein 1+ (Negative) Urine Ketones Trace (Negative) Urine Blood Negative /uL (Negative) Urine Nitrite Negative (Negative) Urine Bilirubin Negative (Negative) Urine Urobilinogen Normal mg/dL (Negative) Urine Leukocyte Esterase Negative /uL (Negative) Urine RBC 2 /hpf (0 - 4) Urine Microscopic WBC 6 /HPF (0-5) Urine Squamous Epithelial Cells Mod /hpf (<5) Urine Bacteria Few /hpf (None Seen) Urine Mucus Few (None Seen) Urine Glucose Normal mg/dL (Normal) Urine Test Negative (Negative) Lactic Acid Level 1.9 mmol/L (0.4-2.0) Test 06/30/24 04:54 Lipase 29 U/L (12-53) Other Laboratory Tests 07/02/24 06:11 Brief Hx & Hospital Course: Patient is a 39-year-old female with no significant past medical history who came in for abdominal pain. Patient states she was woken up about midnight due to the abdominal pain. The pain was in her right epigastric region going over to her right upper quadrant. She states on ER assessment, when they palpitated her RUQ the pain increased significantly. She states she last ate about 1999, and she had fried shrimp and fried veggie roll. On arrival to ER patient was found to be hypotensive, with elevated lactic acid level, and leukocytosis. Fluid bolus and antibiotics were given and blood pressure did improve. Past medical history: none Past surgical history: none Social history: Denies smoking, alcohol, drug use Medications: none Brief hospital course Patient came in the hospital for intractable abdominal pain following which she underwent imaging with a gallbladder ultrasound showing multiple gallstones. With a high suspicion for acute cholecystitis patient was taken for laparoscopic cholecystectomy. Surgery was done without any complications and the patient was given IV antibiotics while in the hospital. Patient was started on clear liquid diet which she tolerated well and passed flatus. Patient cleared from surgery for discharge to be followed up in the clinic within 2 weeks. Discharge plan Patient advised to continue with full liquid diets for 4-5 days and advance as tolerated Advised to follow up in the discharge clinic within 1 week and to be referred to surgery outpatient clinic with Dr. Jamison in 2 weeks. Consults/Reason for consult Surgery consultation for suspected acute cholecystitis Operations or Procedures DATE OF SURGERY: 07/01/2024 PREOPERATIVE DIAGNOSES: Cholelithiasis, cholecystitis. POSTOPERATIVE DIAGNOSES: Cholelithiasis, cholecystitis. SURGEON: Jeison Jamison MD [employer]ODUCT MANAGER: Zachary Rubio. ANESTHESIA: General endotracheal. ANESTHESIOLOGIST: Dr. Rhoades. PROCEDURE: Laparoscopy, laparoscopic cholecystectomy. DESCRIPTION OF PROCEDURE: Under general endotracheal anesthesia, with the patient's skin prepped and draped, a supraumbilical incision was made and Veress needle inserted into the peritoneal cavity by the hanging drop technique in order to establish pneumoperitoneum to 15 mmHg pressure by insufflation with carbon dioxide. With the abdomen fully distended, the needle was removed and replaced with a 5 mm trocar port through which a 0-degree viewing laparoscope was inserted and under direct vision, additional 5 and 10 mm ports inserted through the right anterior axillary line at the level of the umbilicus and the subxiphoid skin in the midline respectively. Instrumentation was introduced. Laparoscopy revealed no obvious unexpected pathology on the serosal surfaces visualized. Visualization was hampered by the patient's obesity. There was a redundant left lobe of the liver, which made the procedure somewhat difficult due to retraction and visualization. The gallbladder was found to be distended. The gallbladder was placed on tension. Cystic artery and cystic duct were identified, circumferentially dissected, traced into the hepatocystic triangle so as to minimize the potential for inadvertent injury to the common bile duct. The cystic duct and cystic artery were then circumferentially dissected and skeletonized and the divided between metallic clips applied to these structures away from the common bile duct, again protecting the common bile duct. The cystic duct was short and was traced high up to its confluence with the gallbladder as high as possible. Subsequently, the gallbladder, which was partially intrahepatic, was resected from its liver bed and the resection to the intrahepatic portion of the gallbladder resulted in some blood loss and a small amount of hemostatic SNoW was then applied to the edge of the right lobe of the liver. The subhepatic space was irrigated, the irrigant was aspirated. Hemostasis was meticulously inspected and found to be complete. At the termination of the procedure, there was no evidence of bleeding from either the liver bed or from the port sites. Instrumentation was withdrawn. Pneumoperitoneum was evacuated. Fascial defect closed using 0 Vicryl. Wounds approximated using Monocryl sutures, Dermabond glue and Steri-Strips. The patient remained stable throughout the procedure, left the operating room following an accurate needle and sponge count. Her was thoroughly informed by phone. Jeison Jamisno MD PF/SAY Condition at Discharge: Good Final Diagnosis/Problems List Discharge Disposition: Home Discharge Instruct/Medications Diet: See Comment Diet comment: continue on full liquid diet for one week and then advance as tolerated Activity: No Restrictions, As Tolerated Follow Up/Referral: Follow up in the discharge clinic in one week Follow up with in the outpatient clinic in 2 weeks Medications: as per EMR Discharge Statement: "Patient was advised to return to the ER or call 911 if any headaches, dizziness, shortness of breath, chest pain, abdominal pain, bleeding, fevers, or worsening of medical condition. Patient was counseled about treatment plan, medications, possible side effects, patientverbalized understanding. All questions were answered to the best of my ability. This discharge took greater then 30 minutes in planning, reviewing documentation, counseling the patient, and discussing with other team members." ASSESSMENT ASSESSMENT Assessment Date of Service: Jul 02, 2024 Billing Provider: MARINA VICK MD Common Visit Codes: [id number] DISCH DAY >30min JOHNSON JERNIGAN RESIDENT Jul 02, 2024 19:58 MARINA VICK MD Jul 06, 2024 15:53
== END 2024-07-02 15:07 | disposition home or self-care (01) | DRG 710 ==
LOC: ER 03:26 → OVERFLOW 10:09 → WEST WING 10:17
PROVIDERS: ADMIT Student in an Organized Health Care Education/Training Program; ATTEND Emergency Medicine
PROC: 0FT44ZZ Resection of Gallbladder, Percutaneous Endoscopic Approach (ICD-10-PCS; principal; 2024-07-01 07:19)
DX: A41.9 Sepsis, unspecified organism (principal); E87.20 Acidosis, unspecified; K80.10 Calculus of gallbladder with chronic cholecystitis without obstruction; K76.0 Fatty (change of) liver, not elsewhere classified; E66.9 Obesity, unspecified; Z68.31 Body mass index [BMI] 31.0-31.9, adult; K44.9 Diaphragmatic hernia without obstruction or gangrene; K42.9 Umbilical hernia without obstruction or gangrene
CPT/HCPCS: 36415; 74176; 76705; 78226; 80053; 81001; 81025; 82247; 83605; 83690; 85025; 85610; 85730; 86850; 86900; 86901; 87040; 96361; 96365; 96367; 96375; 99291; G0378; J0131; J0330; J1100; J2405; J2704; J3490